=== PATIENT | female | born 1965 | race Two or more races ===

== ENCOUNTER 2018-06-23 13:35 | Emergency (ER) | payer SELFPAY ==
[~2018-06-23] VITALS: Ht 165.1 cm; Wt 64.4 kg
[2018-06-23 13:53] VITALS: BP 131/78
[2018-06-23] MEDS ORDERED: KETOROLAC TROMETH 60MG/2ML VIAL IM ONE (15:30)
== END 2018-06-23 17:36 | disposition home or self-care (01) ==
LOC: ER 13:40
DX: M25.521 Pain in right elbow (principal)
CPT/HCPCS: 73080; 73200; 96372; 99284; J1885